=== PATIENT | female | born 1995 | race American Indian/Alaskan Native ===

== ENCOUNTER 2019-06-04 22:48 | Emergency (ER) | payer MEDICAID ==
[2019-06-04 23:16] VITALS: BP 130/76
[2019-06-04 23:31] LABS: Basophils % (Auto) 0.2 % (0.0-1.8); Eosinophils % (Auto) 0.2 % (0.0-4.3); Hemoglobin 13.8 gm/dl (10.1-14.3); Lymphocytes # (Auto) 1.8 K/mm3 (1.2-5.4); Lymphocytes % (Auto) 23.3 % (13.4-35.0); Mean Corpuscular HGB Conc 35 % (30-34); Mean Corpuscular Volume 92 fl (79-97); Monocytes # (Auto) 0.5 K/mm3 (0.0-0.8); Monocytes % (Auto) 6.3 % (0.0-7.3); Platelet Count 217 K/mm3 (140-440); Red Blood Count 4.34 M/mm3 (3.65-5.03); Red Cell Distribution Width 12.9 % (13.2-15.2)
[2019-06-05 00:01] LABS: Bilirubin,Urine NEG (Negative); Blood,Urine SM (Negative); Color,Urine Yellow (Yellow); Mucus,Urine FEW /HPF; Protein,Urine <15 mg/dL mg/dL (Negative); Urobilinogen,Urine < 2.0 mg/dL (<2.0); WBC,Urine < 1.0 /HPF (0.0-6.0)
--- NOTE | 2019-06-05 00:21 | Ultrasound Report ---
US OB <= 14 weeks fetus, US OB transvaginal INDICATION / CLINICAL INFORMATION: Vaginal bleeding. COMPARISON: None available. FINDINGS: A single live fetus of approximately 12 weeks 3 days gestational age is seen in the uterus. [place]-rum p length measures 5.9 cm. heart rate is 153. The ovaries are normal in size and appearance. IMPRESSION: Single live fetus of approximately 12 weeks 3 days gestational age in the uterus with heart rat e 153 Signer Name: Good Murrell MD FACR Signed: 06/05/2019 12:16 AM Workstation Name: [id number]
--- NOTE | 2019-06-05 00:21 | Ultrasound Report ---
US OB <= 14 weeks fetus, US OB transvaginal INDICATION / CLINICAL INFORMATION: Vaginal bleeding. COMPARISON: None available. FINDINGS: A single live fetus of approximately 12 weeks 3 days gestational age is seen in the uterus. [place]-rum p length measures 5.9 cm. heart rate is 153. The ovaries are normal in size and appearance. IMPRESSION: Single live fetus of approximately 12 weeks 3 days gestational age in the uterus with heart rat e 153 Signer Name: Good Murrell MD FACR Signed: 06/05/2019 12:16 AM Workstation Name: [id number]
--- NOTE | 2019-06-05 01:18 | Emergency Department Report ---
ED Female HPI - General Chief complaint: Vaginal Bleeding Stated complaint: 11WEEKS PREG/BLEEDING Time Seen by Provider: 06/05/19 00:41 Source: patient Mode of arrival: Ambulatory Limitations: No Limitations - History of Present Illness Initial comments: This is a 23-year-old female who presents to ED complaining of mild pelvic cramping with vaginal bleeding that started yesterday. Patient states the bleeding is mild and light. Patient states that she has [facility] out of [place] getting care from them. Patient states to having sexual intercourse about 3 days ago. She denies dysuria, vaginal discharge, vomiting Complaint: vaginal bleeding - Related Data Allergies Allergy/AdvReac Type Severity Reaction Status Date / Time No Known Allergies Allergy Unverified 06/04/19 23:14 ED Review of Systems ROS: Stated complaint: 11WEEKS PREG/BLEEDING Other details as noted in HPI Comment: All other systems reviewed and negative ED Past Medical Hx - Past Medical History Previous Medical History?: No - Surgical History Past Surgical History?: No - Social History Smoking Status: Never Smoker Substance Use Type: None ED Physical Exam - General Limitations: No Limitations General appearance: alert, in no apparent distress - Head Head exam: Present: atraumatic, normocephalic - Eye Eye exam: Present: normal appearance - ENT ENT exam: Present: mucous membranes moist - Neck Neck exam: Present: normal inspection - Respiratory Respiratory exam: Present: normal lung sounds bilaterally. Absent: respiratory distress - Cardiovascular Cardiovascular Exam: Present: regular rate, normal rhythm. Absent: systolic murmur, diastolic murmur, rubs, gallop - GI/Abdominal GI/Abdominal exam: Present: soft, normal bowel sounds - Extremities Exam Extremities exam: Present: normal inspection - Back Exam Back exam: Present: normal inspection - Neurological Exam Neurological exam: Present: alert, oriented X3 - Psychiatric Psychiatric exam: Present: normal affect, normal mood - Skin Skin exam: Present: warm, dry, intact, normal color. Absent: rash ED Course Vital Signs 06/04/19 23:15 Temperature 98 F Pulse Rate 82 Respiratory 18 Rate Blood Pressure 130/76 [Left] O2 Sat by Pulse 100 Oximetry ED Medical Decision Making - Lab Data Result diagrams: 06/04/19 23:19 - Radiology Data Radiology results: report reviewed, image reviewed INDICATION / CLINICAL INFORMATION: Vaginal bleeding. COMPARISON: None available. FINDINGS: A single live fetus of approximately 12 weeks 3 days gestational age is seen in the uterus. [place]- rump length measures 5.9 cm. heart rate is 153. The ovaries are normal in size and appearance. IMPRESSION: Single live fetus of approximately 12 weeks 3 days gestational age in the uterus with heart rate 153 Signer Name: Good Murrell MD FACR Signed: 06/05/2019 12:16 AM Workstation Name: [id number] Transcribed By: MS Dictated By: Good Murrell MD Electronically Authenticated By: Good Murrell MD Signed Date/Time: 06/05/19 0016 - Medical Decision Making This 23-year-old female presents with vaginal bleeding in . ED course: Pt received ultra sound, CBC, urinalysis, test and quantitative ED All labs within normal limits, quantitative elevated matching gestation age Patient is followed by an [facility] [employer] out of [place] Ultrasound shows single intrauterine gestation at 12 weeks with 153 See reported above Vital signs normalized patient is in no acute distress. I discussed with the patient if follow-up with her [employer] in 2-3 days. I discussed all labs and ultrasound findings with the patient. I discussed with the patient that he if bleeding worsens or new symptoms develop to return to ED immediately Critical care attestation.: If time is entered above; I have spent that time in minutes in the direct care of this critically ill patient, excluding procedure time. ED Disposition Clinical Impression: Vaginal bleeding in Disposition: -01 TO HOME OR SELFCARE Is pt being admited?: No Does the pt Need Aspirin: No Condition: Stable Instructions: Threatened Miscarriage (ED), (ED) Additional Instructions: Make sure to follow up with the [employer] as discussed. Take all your medications as you've been prescribed. If you have any worsening symptoms or develop new symptoms please return to ED immediately. Referrals: [facility] [Provider Group] - 3-5 Days Forms: Accompanied Note, Work/School Release Form(ED) Time of Disposition: 01:20
== END 2019-06-05 01:34 | disposition home or self-care (01) ==
LOC: ED 22:48
DX: O46.91 Antepartum hemorrhage, unspecified, first trimester (principal); Z3A.12 12 weeks gestation of pregnancy
CPT/HCPCS: 36415; 76801; 76817; 81001; 84702; 85025; 86900; 86901; 99284